=== PATIENT | male | born 1990 | race Two or more races ===

== ENCOUNTER 2021-08-03 17:20 | Inpatient (IN) | payer MEDICAID ==
[~2021-08-03] VITALS: Ht 167.6 cm; Wt 59.2 kg
[2021-08-03] MEDS ORDERED: CIPROFLOXACIN 400MG/200ML 200 ML IV ONE (18:45)
[2021-08-03] MEDS ORDERED: cefTRIAXone 1GM/50ML D5W 50 ML IV ONE (18:45)
[2021-08-03] MEDS ORDERED: MORPHINE SULFATE 4 MG/ML SYR/VIAL IV ONE (19:15)
[2021-08-03] MEDS ORDERED: ONDANSETRON HCL 4 MG/2 ML VIAL IV ONE (19:15)
[2021-08-03 19:48] LABS: Albumin 3.3 g/dL (3.4-5.0); Potassium 4.3 mmol/L (3.5-5.1)
[2021-08-03 19:51] LABS: BUN/Creatinine Ratio 9.7; Bilirubin, Total 0.6 mg/dL (0.2-1.0)
[2021-08-03] MEDS ORDERED: IOHEXOL 300 MG/ML 100ML BOTTLE IJ ONE (21:02)
[2021-08-04 00:23] LABS: Urine Bacteria NONE SEEN /hpf (None Seen); Urine Blood 3+ /uL (Negative); Urine Mucus FEW (None Seen); Urine Specific Gravity 1.032 (1.001-1.035); Urine WBC 479 /hpf (0 - 3); Urine WBC Clumps PRESENT /hpf (None Seen)
[2021-08-04] MEDS ORDERED: HYDROcodone-ACET 5/325MG TAB PO PRN (07:00)
[2021-08-04] MEDS ORDERED: ONDANSETRON HCL 4 MG/2 ML VIAL IV PRN (07:00)
[2021-08-04] MEDS ORDERED: ACETAMINOPHEN 325 MG TAB PO PRN (07:00)
[2021-08-04 07:14] LABS: Basophils # (auto) 0 10 ^3/uL (0-0.2); Basophils % (auto) 0.3 % (0.0-2.0); Eosinophils # (auto) 0 10 ^3/uL (0-0.8); Eosinophils % (auto) 0.3 % (0.0-7.0); Hematocrit 38.4 % (41.0-53.0); Hemoglobin 13.2 g/dL (13.5-17.5); Lymphocytes # (auto) 1.4 10 ^3/uL (0.4-5.4); Lymphocytes % (auto) 12.6 % (10.0-50.0); Mean Corpuscular Hemoglobin 30.9 pg (28.0-32.0); Mean Corpuscular Hgb Conc. 34.4 g/dL (32.0-36.0); Mean Corpuscular Volume 90.1 fL (80.0-100.0); Monocytes # (auto) 1.7 10 ^3/uL (0-1.3); Monocytes % (auto) 15.6 % (0.0-12.0); Neutrophils # (auto) 7.9 10 ^3/uL (1.6-8.6); Neutrophils % (auto) 71.2 % (37.0-80.0); Red Blood Cells 4.26 10^6/uL (4.5-5.90)
[2021-08-04] MEDS ORDERED: LIDOCAINE 2%HCL (LOCAL ANESTH.) INJ 20ML MDV ONE (09:50)
[2021-08-04] MEDS ORDERED: IOHEXOL 300 MG/ML 100ML BOTTLE IJ ONE (09:50)
[2021-08-04] MEDS: PANTOPRAZOLE 40 MG TAB PO SCH (11:37)
[2021-08-04] MEDS ORDERED: cefTRIAXone 1GM/50ML D5W 50 ML IV ONE (12:30)
[2021-08-04 22:00] VITALS: BP 120/66
[2021-08-04] MEDS: MORPHINE SULFATE 4 MG/ML SYR/VIAL IV PRN (22:08)
[2021-08-04 22:57] VITALS: BP 120/66
[2021-08-05] MEDS ORDERED: CIPR500T4 PO (02:34)
[2021-08-05] MEDS: MORPHINE SULFATE 4 MG/ML SYR/VIAL IV PRN (04:54)
[2021-08-05 05:00] VITALS: BP 122/71
[2021-08-05 06:32] LABS: Basophils # (auto) 0 10 ^3/uL (0-0.2); Basophils % (auto) 0.4 % (0.0-2.0); Eosinophils # (auto) 0.1 10 ^3/uL (0-0.8); Eosinophils % (auto) 1.3 % (0.0-7.0); Hematocrit 39.2 % (41.0-53.0); Hemoglobin 13.5 g/dL (13.5-17.5); Lymphocytes # (auto) 1.5 10 ^3/uL (0.4-5.4); Lymphocytes % (auto) 14.8 % (10.0-50.0); Mean Corpuscular Hemoglobin 30.5 pg (28.0-32.0); Mean Corpuscular Hgb Conc. 34.5 g/dL (32.0-36.0); Mean Corpuscular Volume 88.4 fL (80.0-100.0); Monocytes # (auto) 1.3 10 ^3/uL (0-1.3); Monocytes % (auto) 12.5 % (0.0-12.0); Neutrophils # (auto) 7.2 10 ^3/uL (1.6-8.6); Red Blood Cells 4.43 10^6/uL (4.5-5.90); White Blood Cell 10.1 10^3/uL (4.4-10.8)
[2021-08-05 06:46] LABS: BUN/Creatinine Ratio 13.7; Calcium 9.1 mg/dL (8.5-10.1); Potassium 3.6 mmol/L (3.5-5.1)
[2021-08-05 09:00] VITALS: BP 111/63
[2021-08-05] MEDS ORDERED: cefTRIAXone 1GM/50ML D5W 50 ML IV SCH (09:00)
[2021-08-05] MEDS: PANTOPRAZOLE 40 MG TAB PO SCH (10:06)
[2021-08-05] MEDS ORDERED: CIPR-173 PO (10:51)
[2021-08-05 13:00] VITALS: BP 105/51
[2021-08-05 16:28] VITALS: BP 111/63
[2021-08-05 17:00] VITALS: BP 104/57
== END 2021-08-05 18:00 | disposition home or self-care (01) | DRG 466 ==
LOC: EDUNIT# 17:20 → ER 17:20 → OVERFLOW 08-04 06:55 → CENTRAL 08-04 21:03
PROVIDERS: ADMIT Nurse Practitioner; ATTEND Internal Medicine Pulmonary Disease
PROC: 0T25X0Z Change Drainage Device in Kidney, External Approach (ICD-10-PCS; principal; 2021-08-04)
PROC: BT111ZZ Fluoroscopy of Right Kidney using Low Osmolar Contrast (ICD-10-PCS; 2021-08-04)
DX: T83.012A Breakdown (mechanical) of nephrostomy catheter, initial encounter (principal); E44.0 Moderate protein-calorie malnutrition; K56.7 Ileus, unspecified; N20.1 Calculus of ureter; N13.6 Pyonephrosis; Z20.822 Contact with and (suspected) exposure to COVID-19; F17.210 Nicotine dependence, cigarettes, uncomplicated; Y83.8 Other surgical procedures as the cause of abnormal reaction of the patient, or of later complication, without mention of misadventure at the time of the procedure; Y92.89 Other specified places as the place of occurrence of the external cause; Z87.442 Personal history of urinary calculi; Z68.21 Body mass index [BMI] 21.0-21.9, adult
CPT/HCPCS: 36415; 50435; 74177; 75984; 76000; 80048; 80053; 81001; 83605; 85025; 87040; 87086; 87088; 87426; 96365; 96366; 96368; 99291; C1729; G0378; J0696